=== PATIENT | female | born 1995 | race Two or more races ===

== ENCOUNTER 2018-11-29 11:43 | Emergency (ER) | payer BC, OTHER ==
[~2018-11-29] VITALS: Ht 157.5 cm; Wt 99.8 kg
[2018-11-29 11:59] VITALS: BP 121/58
[2018-11-29] MEDS ORDERED: cefTRIAXone SOD 1,000 MG VL ONE (13:24)
[2018-11-29] MEDS ORDERED: cefTRIAXone SOD 1,000 MG VL IM ONE (13:30)
== END 2018-11-29 13:57 | disposition home or self-care (01) ==
LOC: ER 11:50
DX: J03.90 Acute tonsillitis, unspecified (principal)
CPT/HCPCS: 96372; 99283; J0696

== ENCOUNTER 2018-12-01 22:17 | Emergency (ER) | payer BC ==
[~2018-12-01] VITALS: Ht 157.5 cm; Wt 104.3 kg
[2018-12-01 22:26] VITALS: BP 138/76
[2018-12-02] MEDS ORDERED: KETOROLAC TROMETH 60MG/2ML VIAL IM ONE (02:15)
== END 2018-12-02 03:10 | disposition home or self-care (01) ==
LOC: ER 22:18
DX: G43.909 Migraine, unspecified, not intractable, without status migrainosus (principal); L56.8 Other specified acute skin changes due to ultraviolet radiation
CPT/HCPCS: 96372; 99283; J1885